=== PATIENT | female | born 1985 | race Caucasian/White ===

== ENCOUNTER 2019-09-24 07:44 | Outpatient (CLI) | payer OTHER, SELFPAY ==
--- NOTE | 2019-09-24 | ECHO_ITS ---
Patient Info Name: Lisa Mann Age: 34 years : 1985 Gender: Female Ht: 63 in Wt: 230 lbs BSA: 2.21 m2 HR: 74 bpm BP: 122 / 91 mmHg Heart Rhythm: Sinus Rhythm Technical Quality: Good Exam Date: 09/24/2019 8:15 AM Exam Location: [facility] Patient Status: Outpatient Admit Date: 09/24/2019 Staff Ordering Physician: Be Pierce MD [employer]: Garrett Culp RDCS, RT Attending Provider: Be Pierce MD Referring Physician: Stan LIMON; Exam Type: CA echo doppler color flow Study Info Indications Z82.49 - Family history of ischemic heart disease and other diseases of the circulatory system Complete two-dimensional, color flow and Doppler transthoracic echocardiogram is performed. Summary 1. Unremarkable echocardiogram. Left Ventricle Left ventricular chamber dimension is normal. Left ventricular systolic function is normal, estimated at 60-65%. The left ventricular diastolic function is normal. Right Ventricle Right ventricular chamber dimension is normal. Left Atria Left atrial chamber dimension is normal. Right Atria Right atrial chamber dimension is normal. Aortic Valve The aortic valve is trileaflet. Pulmonic Valve The pulmonic valve is normal. Mitral Valve The mitral valve has normal leaflets. Tricuspid Valve The tricuspid valve leaflets are normal. Pericardium/Pleural The pericardium appears normal. Aorta The aortic root size at the sinus of Valsalva is normal. Left Ventricular Outflow Tract Name Value Normal LVOT Doppler LVOT Peak Gradient 4 mmHg LVOT Mean Gradient 2 mmHg LVOT VTI 21 cm LVOT VTI/AV VTI Ratio 0.8 Pulmonic Valve Name Value Normal PV Doppler PV Peak Gradient 3 mmHg Mitral Valve Name Value Normal MV Doppler MV Decel Labette 370 cm/s2 MV PHT 46 ms MV Area (PHT) 4.8 cm2 4.0-5.0 MV Diastolic Function MV E Peak Velocity 59 cm/s MV A Peak Velocity 52 cm/s MV E/A 1.1 MV Decel Time 159 ms Tricuspid Valve Name Value Normal TV Regurgitation Doppler TR Peak Velocity
== END 2019-09-24 07:45 | disposition home or self-care (01) ==
PROVIDERS: PCP Emergency Medicine; Visit Provider Emergency Medicine
DX: Z82.49 Family history of ischemic heart disease and other diseases of the circulatory system (principal)
CPT/HCPCS: 93306

== ENCOUNTER 2019-09-27 09:11 | Outpatient (CLI) | payer OTHER, SELFPAY ==
--- NOTE | ~2019-09-27 | US_ITS ---
EXAMINATION: US venous doppler [facility] DATE: 09/27/2019 10:31 INDICATION: Lower limb swelling. Claudication. TECHNIQUE: Grayscale ultrasound images without and with compression and Doppler ultrasound images of the bilateral lower extremity veins were obtained. COMPARISON: None. FINDINGS: The visualized portions of right common femoral vein, profunda (deep) femoral vein, femoral vein, pop liteal vein, posterior tibial veins, peroneal veins, gastrocnemius vein and greater saphenous vein ou tflow are patent. Right Standing Venous Mapping: reflux seconds duration; vein size. Greater saphenous origin: 0 seconds; 8.5 mm. Greater saphenous mid thigh:------ 0 seconds; 2.7 mm. Greater saphenous above the knee:--- 0 seconds; 5.7 mm. Greater saphenous below knee:--- 0 seconds; 3.8 mm. Lesser saphenous proximally:------ 0 seconds; 3.7 mm. Lesser saphenous distally: 0 seconds; 2.0 mm. The visualized portions of left common femoral vein, profunda femoral vein, femoral vein, popliteal v ein, posterior tibial veins, peroneal veins, gastrocnemius vein and greater saphenous vein outflow ar e patent. Left Standing Venous Mapping: reflux seconds duration; vein size. Greater saphenous origin: 0 seconds; 8.1 mm. Greater saphenous above the knee :------ 0 seconds; 4.4 mm. Greater saphenous below knee:--- 0 seconds; 3.9 mm. Lesser saphenous proximally:------ 0 seconds; 1.9 mm. Lesser saphenous distally: 0 seconds; 2.3 mm. IMPRESSION: 1. No deep venous thrombosis or venous reflux in either lower limb. Reviewed, dictated and finalized at location A. [employer]
== END 2019-09-27 09:12 | disposition home or self-care (01) ==
PROVIDERS: PCP Emergency Medicine; Visit Provider Emergency Medicine
DX: R60.0 Localized edema (principal); I73.9 Peripheral vascular disease, unspecified
CPT/HCPCS: 93970

== ENCOUNTER 2019-10-09 13:32 | Emergency (ER) | payer OTHER, SELFPAY ==
[2019-10-09 13:55] VITALS: BP 106/85; PULSE 121; RESP 18; TEMP 38.8; O2SAT 100
--- NOTE | 2019-10-09 13:58 | ED.URI ---
HPI - URI/Sore Throat General Chief Complaint: Upper Respiratory Infection Stated Complaint: sore throat/cough Time Seen by Provider: 10/09/19 13:58 Source: patient Mode of arrival: ambulatory Limitations: no limitations History of Present Illness HPI Narrative: Lisa Anthony is a 34 yo female with no prior medical history who comes to [facility] care with upper respiratory symptoms sore throat that started last night Related Data Home Medications Medication Instructions Recorded Confirmed omeprazole 20 mg BID 10/09/19 10/09/19 Allergies Allergy/AdvReac Type Severity Reaction Status Date / Time paroxetine Allergy Unknown Verified 03/25/17 13:35 promethazine Allergy Unknown Verified 03/25/17 13:35 sulfamethoxazole Allergy Unknown Verified 03/25/17 13:35 trimethoprim Allergy Unknown Verified 03/25/17 13:35 Review of Systems Review of Systems: Narrative: CONSTITUTIONAL: Denies fever, chills, sweats. EYES: Denies visual changes, redness, discharge. ENT: has rhinorrhea, congestion, sore throat, no otalgia. CARDIOVASCULAR: Denies chest pain, palpitations, edema. RESPIRATORY: Denies dyspnea, wheezing,has cough GASTROINTESTINAL: Denies abdominal pain, nausea, vomiting, diarrhea. GENITOURINARY: Denies dysuria, hematuria, abnormal discharge SKIN: Denies rash or itching. NEUROLOGIC: Denies numbness, or focal weakness. PSYCHIATRIC: Denies anxiety or depression. [facility] Family History Family History Other No active medical problems Social History Social History (Updated 10/09/19 @ 14:00 by Adriana Miguel CNP) Smoking status: Current some day smoker Alcohol intake: current Gender identity (if verbalized by the patient): Female Comments At time of signature, I agree with nursing past medical, surgical, social and family history. There is no relevant family history pertinent to the presenting complaint. Exam Narrative: Exam Narrative: GENERAL: This is a well-nourished, well-developed patient, in mild distress. HEAD: normocephalic, atraumatic. EYES: Sclera clear/white. Vision is grossly intact. EARS: External ears normal, auditory canals clear and without drainage, TMs normal without perforation. Hearing grossly intact. NOSE: External nose normal with nasal discharge, nares with redness, has rhinorrhea. THROAT: Mucous membranes moist, posterior pharynx erythematous-pain with swallowing NECK: Neck supple, non-tender without lymphadenopathy, CARDIOVASCULAR: Tachycardic rate and rhythm without murmurs, gallops, or rubs. RESPIRATORY: Clear to auscultation. Breath sounds equal bilaterally. No wheezes, rales, or rhonchi. GASTROINTESTINAL: Abdomen soft, non-tender, SKIN: warm, intact with no suspicious lesions or rash, good texture and turgor. NEURO: awake, alert, and oriented to person, place and time. There were no obvious focal neurologic abnormalities. Steady gait EXTREMITIES: Normal range of motion. BACK: Nontender without deformity . Course Course Emergency Course: Flu positive Strep negative Started on Tamiflu with a prescription there is some Chantelza i to compare prices, additional prednisone, cough syrup, Vital Signs Vital signs: Vital Signs Temperature 101.9 F H 10/09/19 13:55 Pulse Rate 121 H 10/09/19 13:55 Respiratory Rate 18 10/09/19 13:55 Blood Pressure 106/85 10/09/19 13:55 Pulse Oximetry 100 10/09/19 13:55 Temperature 101.9 F H 10/09/19 13:55 Pulse Rate 121 H 10/09/19 13:55 Respiratory Rate 18 10/09/19 13:55 Blood Pressure 106/85 10/09/19 13:55 Pulse Oximetry 100 10/09/19 13:55 MDM - URI/Sore Throat Differential Diagnosis Differential diagnosis: Likely upper respiratory infection, sinusitis, viral infection, influenza and pharyngitis Lab Data Labs: Influenza A Screen Positive Reference Range: Negative Influenza B Screen Negative Reference Range: Nega
== END 2019-10-09 14:09 | disposition home or self-care (01) ==
PROVIDERS: Emergency Provider Nurse Practitioner; PCP Emergency Medicine
DX: J10.1 Influenza due to other identified influenza virus with other respiratory manifestations (principal); F17.200 Nicotine dependence, unspecified, uncomplicated
CPT/HCPCS: 87081; 87147; 87804; 87880; 99213; G0463